=== PATIENT | female | born 1970 | race Caucasian/White ===

== ENCOUNTER 2016-12-07 15:33 | Emergency (ER) | payer MEDICAID ==
[~2016-12-07] VITALS: Wt 108.5 kg
[~2016-12-07 15:33] MED LIST: ADV25050 INH; ALBU18HF IH; FLUO40CA10 PO; GUAI-637 PO; LEVO500T72 PO; MONT10TA24 PO
[2016-12-07] MEDS ORDERED: ONDANSETRON (ODT) 4 MG TAB ODT STA (16:06)
--- NOTE | 2016-12-07 17:41 | ERD ---
ER Documentation Chief Complaint Date/Time DATE: 12/07/16 TIME: 17:34 Chief Complaint vomiting and diarrhea for a few days with mild abd cramping. HPI 45-year-old female with a history of anxiety presenting to the ER with about 48 hours of nausea, nonbloody nonbilious vomiting, and watery diarrhea. She has also been feeling very anxious, likely because she has been unable to tolerate her Prozac. She recently had a in the family, so that has been stressing her out a lot. She denies any associated headache, vision disturbance, chest pain, shortness of breath, significant abdominal pain. She only has some mild abdominal cramping occasionally. She denies any dysuria. Her last menstrual period was 1 week ago. She has no dyspareunia or vaginal discharge. No fevers or chills ROS All systems reviewed and are negative except as per history of present illness. Medications Home Meds Active Scripts Montelukast Sodium* (Montelukast Sodium*) 10 Mg Tablet, 10 MG PO HS, #30 TAB 1 Refill Prov:CARLINE SAAB 09/12/14 Albuterol Sulfate* (Ventolin HFA*) 18 Gm Hfa.aer.ad, 2 PUFF IH Q4H Y for WHEEZING AND RESP DISTRESS, #1 EA 1 Refill Prov:CARLINE SAAB 09/12/14 Salmeterol Xinaf/Fluticasone* (Advair*) 250-50 Diskus Inhaler, 1 INH INH BID, # 1 INH 1 Refill Prov:CARLINE SAAB 09/12/14 Levofloxacin* (Levaquin*) 500 Mg Tablet, 500 MG PO DAILY, #5 TAB Prov:CARLINE SAAB 09/12/14 Guaifenesin (Guaifenesin) 100 Mg/5 Ml Syrup, 200 MG PO Q4H Y for COUGH, #8 OZ Prov:CARLINE SAAB 09/12/14 Reported Medications Fluoxetine Hcl* (Prozac*) 40 Mg Capsule, 40 MG PO DAILY, CAP 06/06/14 Allergies Allergies: Coded Allergies: No Known Allergy (Unverified , 09/06/14) PMhx/Soc History of Surgery: Yes (Breast augmentation) Anesthesia Reaction: No Hx Neurological Disorder: No Hx Respiratory Disorders: No Hx Cardiac Disorders: No Hx Psychiatric Problems: No Hx Miscellaneous Medical Probl: No Hx Alcohol Use: No Hx Substance Use: Yes (Marijuana) Hx Tobacco Use: No Smoking Status: Never smoker FmHx Family History: No diabetes Physical Exam Vitals Vital Signs Date Time Temp Pulse Resp B/P Pulse Ox O2 Delivery O2 Flow Rate FiO2 12/07/16 15:39 99.0 82 20 168/82 98 Physical Exam Const: Tearful, well appearing, obese, no respiratory distress, nontoxic Head: Atraumatic Eyes: Normal Conjunctiva ENT: Normal External Ears, Nose and Mouth. Posterior oropharynx normal. Neck: Full range of motion No meningismus. Resp: Clear to auscultation bilaterally Cardio: Regular rate and rhythm, no murmurs Abd: Soft, non tender, distended. Hyperactive bowel sounds Skin: No petechiae or rashes Back: No midline or flank tenderness Ext: No cyanosis, or edema Neur: Awake and alert Psych: Somewhat anxious mood and Affect Results 24 hrs Current Medications Medications (Trade) Dose Ordered Sig/Rnady Route PRN Reason Start Time Stop Time Status Last Admin Dose Admin Ondansetron HCl (Zofran Odt) 8 mg ONCE STAT ODT 12/07/16 16:06 12/07/16 16:09 DC 12/07/16 16:27 Procedures/MDM Patient is presenting with vomiting and diarrhea with no significant abdominal pain. Her vitals are stable and she is well-appearing. Her abdominal exam was unremarkable. I have a low suspicion for an acute surgical abdomen. I do not suspect cardiac etiology or any intracranial abnormality. Patient most likely has gastroenteritis. I will schedule labs or imaging are warranted at this time. However I ordered a urinalysis and urine . Patient was treated with Zofran ODT for her nausea. I went to reevaluate the patient and the nurses told me that she had likely eloped as they cannot find her and she has not given any urine sample. Departure Diagnosis: Primary Impression: Vomiting and diarrhea Additional Impression: Anxiety Condition: Stable EKDOM CEBALLOS MD December 07, 2016 17:41
== END 2016-12-07 19:07 | disposition left against medical advice (07) ==
LOC: FTE 15:33
DX: R11.10 Vomiting, unspecified (principal); R19.7 Diarrhea, unspecified; F41.9 Anxiety disorder, unspecified
CPT/HCPCS: 99283

== ENCOUNTER 2017-09-19 17:22 | Emergency (ER) | END 2017-09-19 23:20 | disposition home or self-care (01) ==